=== PATIENT | female | born 1950 | race Caucasian/White ===

== ENCOUNTER 2024-03-12 11:00 | Outpatient (RCR) | payer MEDICARE, BC, SELFPAY | END 2024-03-12 23:59 | disposition home or self-care (01) | LOC: PT 11:00 | PROVIDERS: Visit Provider Orthopaedic Surgery | DX: M25.561 Pain in right knee (principal); Z98.890 Other specified postprocedural states | CPT/HCPCS: 97010; 97110; 97140; 97163; 97530 ==

== ENCOUNTER 2024-04-17 14:00 | Outpatient (RCR) | payer MEDICARE, BC, SELFPAY | END 2024-04-17 23:59 | disposition home or self-care (01) | LOC: PT 14:00 | PROVIDERS: Visit Provider Orthopaedic Surgery | DX: Z98.890 Other specified postprocedural states (principal); Z96.651 Presence of right artificial knee joint | CPT/HCPCS: 97110; 97140; 97164; 97530 ==

== ENCOUNTER 2024-05-10 16:00 | Outpatient (RCR) | payer MEDICARE, BC, SELFPAY | END 2024-05-10 23:59 | disposition home or self-care (01) | LOC: PT 16:00 | PROVIDERS: Visit Provider Orthopaedic Surgery | DX: Z96.651 Presence of right artificial knee joint (principal); Z98.890 Other specified postprocedural states | CPT/HCPCS: 97110; 97140; 97164; 97530 ==

== ENCOUNTER 2024-05-21 13:59 | Outpatient (RCR) | payer MEDICARE, BC, SELFPAY | END 2024-05-21 23:59 | disposition home or self-care (01) | LOC: PT 13:59 | PROVIDERS: Visit Provider Orthopaedic Surgery | DX: Z96.651 Presence of right artificial knee joint (principal) | CPT/HCPCS: 97110; 97140; 97530 ==